=== PATIENT | male | born 1995 | race Caucasian/White ===

== ENCOUNTER 2016-08-19 21:27 | Emergency (ER) | payer OTHER ==
--- NOTE | 2016-08-19 22:42 | EDM.PDOC ---
ED HPI GENERAL MEDICAL PROBLEM - General Chief Complaint: ENT Problem Stated Complaint: EYE SWELLING Time Seen by Provider: 08/19/16 22:36 Source of Information: Reports: Patient History Limitations: Reports: No Limitations - History of Present Illness INITIAL COMMENTS - FREE TEXT/NARRATIVE: 21 year old male presents for evaluation and treatment of swelling to the right eye. Reports the right eye first started swelling about 10 minutes prior to arrival in the ED. Patient reports has was diagnosed with conjunctivitis on Wednesday by the walk in clinic. He was prescribed eye drops and has been taking these as prescribed. Reports today suddenly he developed swelling to the right eye. Reports associated increased tearing, foreign body sensation and blurry vision. No vision loss, double vision, eye pain, headaches, fevers, nausea or vomiting. Patient is supposed to wear glasses but has not done some in some time. No contacts. Girlfriend is also ill with bilateral conjunctivitis. Has not seen optometry in several years. Onset: Today, Sudden Duration: Minutes: (45) Location: Reports: Other (right eye) Quality: Reports: Other (reports foreign body sensation) - Related Data Allergies Allergy/AdvReac Type Severity Reaction Status Date / Time No Known Allergies Allergy Verified 08/19/16 21:48 Home Meds: Home Meds . [No Known Home Meds] 08/19/16 [History] Past Medical History - Past Health History Medical/Surgical History: Denies Medical/Surgical History Social & Family History - Tobacco Use Smoking Status *Q: Never Smoker - Caffeine Use Caffeine Use: Reports: None - Recreational Drug Use Recreational Drug Use: No ED ROS GENERAL - Review of Systems Review Of Systems: See Below Constitutional: Denies: Fever HEENT: Reports: Eye Discharge (right eye watery discharge), Other (reports right eye swelling; reports blurry vision; no vision loss, no double vision). Denies: Eye Pain GI/Abdominal: Denies: Nausea, Vomiting Neurological: Denies: Headache ED EXAM GENERAL W FULL EYE - Physical Exam Exam: See Below Exam Limited By: No Limitations General Appearance: Alert, WD/WN, No Apparent Distress Eye Exam: Right Eye: Conjunctival Injection, Vision Changes (blurry vision), Left Eye: Normal Inspection, Bilateral Eye: PERRL Visual Acuity (R) 20/: 30 (reports vision is blurry compared to normal) Visual Acuity (L) 20/: 50 With Correction: No Eyelids: Right: Erythema, Lid Everted for Exam (no foreign material identified) Conjunctiva & Sclera: Right: Discharge (tearing), Injected, Other (sclera is swollen and boggy from the 5 o'clock positon to the 1 o'clock position), Left: Normal Appearance Cornea Exam: Right: Normal Appearance, Examined with Flourescein Extraocular Movements: Bilateral: Intact Pupils: Normal Accommodation Pupillary Size: Bilateral: 5 mm Pupillary Reaction: Bilateral: Brisk Anterior Chamber: Bilateral: Normal Appearance Respiratory/Chest: No Respiratory Distress, Lungs Clear Cardiovascular: Normal Peripheral Pulses, Regular Rate, Rhythm, No Murmur Neurological: Alert, Oriented, Normal Cognition Course - Vital Signs Last Recorded V/S: Last Vital Signs Temp 36.7 C 08/19/16 21:45 Pulse 54 L 08/19/16 21:45 Resp 16 08/19/16 21:45 BP 136/87 08/19/16 21:45 Pulse Ox 99 08/19/16 21:45 - Re-Assessments/Exams Free Text/Narrative Re-Assessment/Exam: 08/19/16 22:51 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 I will have him start ibuprofen and continue with his eye drops. Follow-up with the eye doctor tomorrow or [facility] at the latest. Discharge instructions as documented. Departure - Departure Time of Disposition: 22:46 Disposition: Home, Self-Care 01 Condition: Fair Clinical Impression: Scleritis - Discharge Information Instructions: Scleritis and Episcleritis Referrals: PCP,Not In Area [Primary Care Provider] - Forms: ED Department Discharge Additional Instructions: Follow-up with your eye doctor tomorrow or [facility] at the latest. may apply cool compress to the eye as needed for pain relief. Ibuprofen 800 mg every 8 hours this is for the inflammation. Take this even if you're not having pain. Please return to the ER immediately if your symptoms change or worsen.
== END 2016-08-19 23:10 | disposition home or self-care (01) ==
LOC: JD.ED 21:27
DX: H15.001 Unspecified scleritis, right eye (principal)
CPT/HCPCS: 99282; 99283